=== PATIENT | female | born 1950 | race Hispanic/Latino ===

== ENCOUNTER → 2019-02-28 | Outpatient (CLI) | payer OTHER | END | disposition home or self-care (01) | LOC: RAH 10:59 | PROVIDERS: ATTEND Family Medicine | DX: Z12.31 Encounter for screening mammogram for malignant neoplasm of breast (principal) | CPT/HCPCS: 77067 ==

== ENCOUNTER 2019-04-16 09:40 | Emergency (ER) | payer OTHER ==
[2019-04-16 10:18] LABS: EOSINOPHILS % (AUTO) 4.4 % (0.0-8.0); HEMATOCRIT 40.1 % (36-48); LYMPHOCYTES % (AUTO) 28.6 % (21.0-51.0); MEAN CORPUSCULAR HEMOGLOBIN 28.3 pg (27.0-33.0); MEAN CORPUSCULAR HGB CONC 32.7 g/dL (32.0-36.0); MEAN CORPUSCULAR VOLUME 86.3 fL (79-99); MONOCYTES % (AUTO) 5.6 % (3.0-13.0); NEUTROPHILS % (AUTO) 60.4 % (40.0-77.0); NUCLEATED RED BLOOD CELLS 0.1 % (0.0-0.19); PLATELET COUNT (AUTO) 230 K/uL (130-400); RED BLOOD CELL COUNT(AUTO) 4.65 MIL/uL (4.00-5.50); RED CELL DISTRIBUTION WIDTH 14.5 % (11.0-15.5); WHITE BLOOD COUNT (AUTO) 9.4 K/uL (4.8-10.8)
[2019-04-16 10:27] LABS: CREATININE 0.9 mg/dL (0.5-1.5); POTASSIUM 3.6 mmol/L (3.5-5.1)
[2019-04-16 10:28] LABS: INR 1.02 (0.85-1.15); PARTIAL THROMBOPLASTIN TIME 26.4 SEC (26.3-35.5); PROTHROMBIN TIME 10.7 SEC (9.6-11.6)
[2019-04-16 10:32] LABS: ALBUMIN 3.9 g/dL (3.5-5.0)
== END 2019-04-16 16:55 | disposition left against medical advice (07) ==
LOC: EDH 09:40
DX: R20.2 Paresthesia of skin (principal); M54.2 Cervicalgia; R29.810 Facial weakness
CPT/HCPCS: 36415; 70450; 71045; 80053; 82550; 84484; 85025; 85610; 85730; 93005

== ENCOUNTER → 2020-04-27 | Outpatient (CLI) | payer OTHER | END | disposition home or self-care (01) | LOC: RAH 12:43 | PROVIDERS: ATTEND Family Medicine | DX: Z12.31 Encounter for screening mammogram for malignant neoplasm of breast (principal) | CPT/HCPCS: 77067 ==

== ENCOUNTER → 2022-06-14 | Outpatient (CLI) | payer OTHER ==
[~2022-06-14] MED LIST: REGADENOSON 0.4 MG/5 ML PF SYG IVP SCH
== END | disposition home or self-care (01) ==
LOC: SLP 20:30
PROVIDERS: ATTEND Internal Medicine
DX: G47.33 Obstructive sleep apnea (adult) (pediatric) (principal)
CPT/HCPCS: 95811

== ENCOUNTER → 2022-06-16 | Outpatient (CLI) | payer OTHER | END | disposition home or self-care (01) | LOC: SHCH 07:57 | PROVIDERS: ATTEND Internal Medicine | DX: R06.02 Shortness of breath (principal); R00.2 Palpitations | CPT/HCPCS: 78452; 96374; 93017; J2785; A9500 ×2 ==

== ENCOUNTER → 2022-06-28 | Outpatient (CLI) | payer OTHER | END | disposition home or self-care (01) | LOC: RESP 13:42 | PROVIDERS: ATTEND Internal Medicine | DX: R06.02 Shortness of breath (principal) | CPT/HCPCS: 93306 ==